=== PATIENT | female | born 1940 | race Caucasian/White ===

== ENCOUNTER 2019-12-02 06:24 | Outpatient (CLI) | payer MEDICARE ==
[2019-12-02 10:46] LABS: #Eosinphils 0.1 thou/uL (0.0-0.7); #Lymphocytes 1.2 thou/uL (1.20-3.40); #Monocytes 0.4 thou/uL (0.11-0.59); #Neutrophils 3.3 thou/uL (1.40-6.50); %Basophils 0.3 % (0.0-1.0); %Eosinophils 1.4 % (0.0-10.0); %Neutrophils 66.3 % (42.0-75.0); Mean Corpuscular HGB CONC 32.9 g/dL (32.0-36.0); Mean Corpuscular Hemoglobin 32.9 pg (27.0-31.0); Mean Platelet Volume 8.9 fL (7.4-10.4); Platelet Count 219 thou/uL (130-400); RBC Distribution Width 12.2 % (11.5-14.5); Red Blood Cell (RBC) Count 3.95 mill/uL (4.20-5.40); White Blood Cell (WBC) Count 4.9 thou/uL (4.8-10.8)
[2019-12-02 10:52] LABS: INR-International Normal Ratio 0.9; Prothrombin Time 12.5 SEC (12.0-14.7)
[2019-12-02 10:55] LABS: Bacteria/HPF 3+ HPF (None Seen); Bilirubin Negative (Negative); Blood, Urine Trace (Negative); Clarity Turbid (Clear); Glucose, Urine (Dipstick) Normal (Negative); Leukocyte 500 Leu/uL (Negative); Nitrite 2+ (Negative); Protein, Urine (Dipstick) 10 mg/dL (Neg-Trace); Squamous Epithelial 21-50 HPF (0-3); Urobilinogen Normal mg/dL (Less than 2); WBC/HPF Greater than 50 HPF (0-3)
[2019-12-02 10:58] LABS: Anion Gap 13 mmol/L (10-20); BUN (Urea Nitrogen) 17 mg/dL (9.8-20.1); Calc. Creatinine Clearance 0 mL/min (70-130); Calcium 9.8 mg/dL (7.8-10.44); Carbon Dioxide 26 mmol/L (23-31); Chloride 107 mmol/L (98-107); Estimated GFR-MDRD 53; Glucose 92 mg/dL (83-110); Sodium 142 mmol/L (136-145)
== END 2019-12-02 06:25 | disposition home or self-care (01) ==
LOC: LABBT 06:24
PROVIDERS: ATTEND Orthopaedic Surgery
DX: Z01.818 Encounter for other preprocedural examination (principal); M17.11 Unilateral primary osteoarthritis, right knee
CPT/HCPCS: 80048; 81001; 85025; 85610; 87081; 93005; 93010

== ENCOUNTER 2019-12-14 06:11 | Day surgery (SDC) | payer MEDICARE ==
[2019-12-02 09:14] VITALS: BMI 28.3
[2019-12-14] MEDS ORDERED: Tranexamic Acid 1,000 MG/10 ML VIAL ONE (07:37)
[2019-12-14] MEDS ORDERED: Sodium Chloride 0.9% 100 ML ONE (07:37)
[2019-12-14] MEDS ORDERED: Fentanyl 100 MCG/2 ML VIAL ONE ×3 (08:24→09:38)
[2019-12-14] MEDS ORDERED: Midazolam HCl 2 mg/2 ml Vial ONE (08:24)
[2019-12-14] MEDS ORDERED: Lidocaine 1% (PF) 30 ML VIAL ONE (08:24)
[2019-12-14] MEDS ORDERED: Ondansetron PF 4 MG/2 ML Vial IVP PRN ×2 (08:51→09:23)
[2019-12-14] MEDS ORDERED: HYDROcodone/Acetaminophen 10/325 mg Tablet PO PRN ×3 (08:51→09:23)
[2019-12-14] MEDS ORDERED: Zolpidem Tartrate 5 MG TAB PO PRN ×2 (08:51→09:23)
[2019-12-14] MEDS ORDERED: Promethazine HCl 25 MG/ML VIAL IM PRN ×3 (08:51→09:42)
[2019-12-14] MEDS ORDERED: Acetaminophen 325 MG TAB PO PRN (08:51)
[2019-12-14] MEDS ORDERED: Fentanyl 100 MCG/2 ML VIAL SLOW IVP PRN (08:51)
[2019-12-14] MEDS ORDERED: diphenhydrAMINE 25 MG CAP PO PRN (08:51)
[2019-12-14] MEDS ORDERED: Ondansetron PF 4 MG/2 ML Vial ONE ×2 (08:54→11:24)
[2019-12-14] MEDS ORDERED: Ropivacaine HCl/PF 250 ML in Premix Bag 1 BAG NERVE BLCK SCH (09:23)
[2019-12-14] MEDS ORDERED: traMADol HCl 50 MG TAB PO PRN (09:23)
[2019-12-14] MEDS ORDERED: PACU-Morphine 4MG/ML VIAL SLOW IVP PRN (09:42)
[2019-12-14] MEDS ORDERED: Promethazine HCl 25 MG/ML VIAL SLOW IVP PRN (09:42)
[2019-12-14 10:24] LABS: Bacteria/HPF 2+ HPF (None Seen); Bilirubin Negative (Negative); Blood, Urine Trace (Negative); Clarity Turbid (Clear); Glucose, Urine (Dipstick) Normal (Negative); Leukocyte 500 Leu/uL (Negative); Nitrite 2+ (Negative); Protein, Urine (Dipstick) 20 mg/dL (Neg-Trace); Squamous Epithelial 0-3 HPF (0-3); Urobilinogen Normal mg/dL (Less than 2); WBC/HPF Greater than 50 HPF (0-3)
--- NOTE | 2019-12-14 11:23 | RAD ---
EXAM: 2 views of the right knee HISTORY: Knee arthroplasty COMPARISON: None FINDINGS: No knee effusion is seen. The patient is status post knee arthroplasty without perihardware lucency or fracture. Air in the soft tissues is from recent surgery. IMPRESSION: Status post knee arthroplasty without evidence of complication.
[2019-12-14] MEDS ORDERED: Lidocaine 1% PF 5 ML VIAL ONE (11:24)
[2019-12-14] MEDS ORDERED: ePHEDrine/0.9% NaCl/PF SYRINGE 50 mg/10 ml ONE (11:24)
[2019-12-14] MEDS ORDERED: Dexamethasone 20 MG/5 ML VIAL ONE (11:24)
[2019-12-14] MEDS ORDERED: PROPOFOL 200 MG/20 ML VIAL ONE (11:24)
[2019-12-14] MEDS ORDERED: Ropivacaine 0.2% HCl/PF (40 MG/20 ML VIAL) ONE (11:39)
[2019-12-14] MEDS ORDERED: Ropivacaine 0.5% HCl/PF (150 MG/30 ML VIAL) ONE (11:39)
[2019-12-14] MEDS: Aspirin 81 mg Enteric Coated Tablet PO SCH ×2 (13:19→20:01)
[2019-12-14] MEDS: Sodium Chloride 0.9% 1,000 ML IV SCH ×3 (13:19→19:54)
[2019-12-14] MEDS: Losartan 25 MG TAB PO SCH (13:19)
--- NOTE | 2019-12-14 13:45 | OP ---
DATE OF PROCEDURE: 12/14/2019 PREOPERATIVE DIAGNOSIS: Degenerative joint disease of the right knee. POSTOPERATIVE DIAGNOSIS: Degenerative joint disease of the right knee. PROCEDURE PERFORMED: Right total knee arthroplasty using Chauvin Triathlon 4 femur, 3 tibia, 11 mm CS X3 polyethylene, and A29 patella. ANESTHESIA: General. ESTIMATED BLOOD LOSS: Minimal. SPECIMENS: None. DRAINS: None. COMPLICATIONS: None. PRIME MINISTER: Black Davis PA-C PROCEDURE IN DETAIL: After informed consent was obtained in the preoperative holding area, the patient was taken to the operative suite where general anesthesia was induced. Once adequate level of general anesthesia was obtained, the patient was positioned and a well-padded tourniquet was placed around the right proximal thigh. The right lower extremity was then prepped and draped in the usual sterile fashion. Prior to exsanguination, a time-out was called and all members of the surgical team agreed upon site, surgeon, and patient. The extremity was then exsanguinated and the tourniquet was raised. A midline longitudinal incision was then made directly over the patella extending 2 fingerbreadths above the superior pole of the patella and 2 fingerbreadths inferior to the inferior patellar pole of the patella. Deeper subcutaneous layers were dissected sharply and local bleeding was controlled with Bovie electrocautery. A quad tendon longitudinal split was then made sharply and a median parapatellar arthrotomy was carried out both sharp and with Bovie electrocautery, carried down to 1 fingerbreadth medial to the tibial tubercle. The knee was then placed into flexion and the patella was everted nicely, and a copious fat pad ectomy was performed allowing for greater exposure of the tibia. The computer-assisted distal femoral fiducial was then placed and pinned firmly, and the distal femoral cutting guide was pinned firmly into place. The oscillating saw was then used to remove the appropriate amount of bone. The 4-in-1 cutting block was then placed on the distal femur and the oscillating saw was used to remove the appropriate amount of bone off the anterior, posterior, and chamfer cuts. After completion of bone cuts, the anterior cruciate ligament was resected sharply and the posterior cruciate ligament retractor was placed and the tibia was subluxed for better exposure. Partial meniscectomies were carried out, and the tibial computer-assisted fiducial was pinned, and the cutting guide was placed. Oscillating saw was then used to remove the bone, with Hohmann retractors used to take care and protect the collateral ligaments. After the tibial resection was performed, a laminar curb builder was placed in between the freshened bone cuts. The knee placed at 90 degrees and further bilateral meniscectomies were carried out, and the curved osteotome and curettage were used to remove any excess bone spurs in the posterior compartment. The trial femoral component, tibial baseplate were placed with the appropriate polyethylene trial insert with an appropriate polyethylene spacer and patellar button. The knee was taken through full range of motion with flexion and extension from 0 to 90 degrees and patellar broach squarely in the trochlea without any squinting or subluxation noted. The knee was also stable to varus and valgus stressing at 0, 15, 45, and 90 degrees of flexion. The drawer was negative. All trial components were then removed and the keel punch was used to provide the appropriate defect in the tibia with a mallet. The freshened bone cuts were copiously irrigated with pulsatile lavage of about 1.5 L to remove all excess debris. The freshened bone cuts were then dried with suction and lap sponge. The knee was placed in flexion and retractors were placed to provide access to all bone cuts. Tobramycin-impregnated methyl methacrylate cement was then placed on the freshened bone cuts and implants which were malleted firmly into place. Curettage and [place] elevators were used to remove any excess bone cement. The knee was placed into full extension and the patellar button was placed under compression, and the cement was allowed to cure. Once completed, the components were again taken through full range of motion and copious irrigation of the knee was carried out with another liter of normal saline. All components were inspected fully with full range of motion and varus and valgus stressing. There was no laxity noted and full extension was observed clinically. Primary closure was accomplished with #2 interrupted Vicryl stitch of the arthrotomy defect. This was oversewn with a #2 running Quill barbed stitch. The gravitational platelet system was then injected into the arthrotomy prior to closure. The subcutaneous layer was then closed with a running 0 barbed Monocryl stitch and skin closure accomplished with a running subcuticular 3-0 Monocryl barbed Quill stitch and augmented with cement on the skin. Tourniquet was lowered. Good spontaneous return of distal pulses was noted clinically and a sterile dressing was applied to the incision. The procedure was terminated without any complications. The patient was awakened in the operative suite and the patient was taken to the recovery room in stable condition. Job ID: [id number]
[2019-12-14] MEDS ORDERED: Ketorolac Tromethamine 30 MG/ML VIAL IVP SCH (14:00)
[2019-12-14] MEDS: Ketorolac Tromethamine 30 MG/ML VIAL IVP SCH ×3 (14:43→23:49)
[2019-12-14] MEDS: Acetaminophen 325 MG TAB PO SCH ×3 (14:43→23:49)
--- NOTE | 2019-12-14 15:08 | CON ---
DATE OF CONSULTATION: PRIMARY CARE PHYSICIAN: Dr. Vik Blum. PRIMARY TEAM: Orthopedics, Dr. Caicedo. REASON FOR CONSULTATION: Medical management. HISTORY OF PRESENT ILLNESS: This is an 79-year-old white female with a known history of degenerative joint disease, here for right total knee arthroplasty, done earlier today. She is doing well postoperatively, has gotten up with physical therapy already and ambulated in the hallway. She denies any pain currently. No other complaints except for little nausea that she had postoperatively in the recovery room, still a little nauseated now. No vomiting. REVIEW OF SYSTEMS: CONSTITUTIONAL: No fevers. No chills. EYES: No double vision or blurred vision. ENT: No congestion, drainage, or sore throat. CARDIOVASCULAR: No chest pain. No palpitation or racing heart. PULMONARY: No coughing, wheezing, or shortness of breath. GASTROINTESTINAL: No abdominal pain. She had the nausea as per the HPI. No vomiting. No diarrhea or constipation. GENITOURINARY: No dysuria or hematuria. MUSCULOSKELETAL: No current muscle aches or joint pain. She had right knee pain that is now status post replacement. SKIN: No rashes or other lesions she has noted. NEUROLOGIC: No numbness, tingling, or focal weakness. PAST MEDICAL HISTORY: 1. Hypertension. 2. Hyperlipidemia. 3. Gastroesophageal reflux disease. 4. The patient's chart also lists chronic kidney disease, stage 3 and osteopenia, though the patient is not aware of these medical issues. PAST SURGICAL HISTORY: 1. Cholecystectomy. 2. Hysterectomy. 3. Melanoma removal times twice in the left arm. 4. Bilateral cataract removal. SOCIAL HISTORY: The patient denies tobacco, alcohol, or illicit drug use. She is a and lives with her daughter who is present in the room and is her medical power of melter caster. FAMILY HISTORY: Mother with diabetes and multiple other family members with diabetes as well. ALLERGIES: CODEINE CAUSES NAUSEA AND VOMITING. CURRENT MEDICATIONS: 1. Nexium 40 mg daily. 2. Losartan 50 mg daily. 3. Rosuvastatin 10 mg at night. PHYSICAL EXAMINATION: VITAL SIGNS: Blood pressure 153/76, pulse 75, respirations 16, O2 saturation 92% on room air, temperature 97.5. GENERAL: This is a well-developed, well-nourished, white female, in no acute distress. HEENT: Pupils are equal, round, and reactive to light. Oropharynx is clear without lesions, erythema, or exudate. NECK: Supple. No lymphadenopathy. No thyroid nodules or enlargement. No JVD. HEART: Regular rate and rhythm. No murmurs, rubs, or gallops. LUNGS: Clear to auscultation bilaterally. No wheezes, crackles, or rhonchi. ABDOMEN: Soft, nontender to palpation. Normoactive bowel sounds. No hepatosplenomegaly or other masses. EXTREMITIES: No clubbing, cyanosis, or edema. She has had a postoperative dressing on her right knee and has SCDs and KADY hose bilaterally. SKIN: No rashes or other lesions noted. NEUROLOGIC: The patient has intact strength and sensation in all extremities. No facial droop. LABORATORY DATA: Urinalysis does show greater than 50 white blood cells and 2+ bacteria in spite of no symptoms, she also has elevated leukocyte esterase, this is similar to a urinalysis which was done a week ago, and culture is currently pending. CBC within normal limits. Coagulation profile normal. Basic metabolic panel normal. ASSESSMENT: 1. Osteoarthritis of knee, status post right knee replacement. 2. Hypertension, resume home blood pressure medications. 3. Hyperlipidemia, resume rosuvastatin. 4. Gastroesophageal reflux disease. Resume daily Nexium. The patient has reportedly been on it twice a day in the past from Dr. Zamora, but was eventually weaned down to once a day. If she has symptoms, it can be increased back up to twice a day. 5. Chronic kidney disease by chart history. Her creatinine is currently normal. We will keep an eye on her urine output. No evidence of renal failure at this time. 6. Deep venous thrombosis prophylaxis, on SCDs and TEDs already. 7. Code status: I did discuss with the patient. She is a full code. Her medical power of melter caster is her daughter, Rosalinda Berg. Job ID: [id number]
[2019-12-14] MEDS: CEFAZOLIN 2 GM in Premix Bag 1 BAG IVPB SCH ×2 (17:01→23:49)
[2019-12-14] MEDS: traMADol HCl 50 MG TAB PO PRN (19:52)
[2019-12-14] MEDS: Rosuvastatin 10 MG TAB PO SCH (20:01)
[2019-12-15] MEDS: Sodium Chloride 0.9% 1,000 ML IV SCH ×2 (05:12→14:41)
[2019-12-15] MEDS: Acetaminophen 325 MG TAB PO SCH ×3 (05:13→16:35)
[2019-12-15] MEDS: Ketorolac Tromethamine 30 MG/ML VIAL IVP SCH ×3 (05:13→16:35)
[2019-12-15 05:46] LABS: Hemoglobin 10.1 g/dL (12.0-16.0); Mean Corpuscular HGB CONC 33.4 g/dL (32.0-36.0); Mean Corpuscular Hemoglobin 33.4 pg (27.0-31.0); Mean Platelet Volume 8.6 fL (7.4-10.4); Platelet Count 188 thou/uL (130-400); RBC Distribution Width 11.8 % (11.5-14.5); Red Blood Cell (RBC) Count 3.01 mill/uL (4.20-5.40)
--- NOTE | 2019-12-15 08:30 | PRG ---
DATE OF SERVICE: 12/15/2019 SUBJECTIVE: Noris is an 79-year-old female postop day 1 from right total knee arthroplasty. She had a little bit of pain breakthrough last night, but it has been better controlled this morning and she does complain of a little bit of nausea. Otherwise, she did get some rest last night. OBJECTIVE: VITAL SIGNS: Temperature 98.1, pulse 81, respiratory rate 16, blood pressure 124/72. GENERAL: She is alert and oriented to person, place, time, and situation, responsive and appropriate with examiner. Nonfocal. EXTREMITIES: Her incision is clean. Re-dressed. No significant swelling or ecchymosis is identified. She has good dorsiflexion, inversion, eversion. Neurovascularly intact in the right lower extremity. No shortening or malrotation. No strikethrough is noted. LABORATORY DATA: Hemoglobin and hematocrit 10.1 and 30.2. IMPRESSION: An 79-year-old female postop day 1 right total knee arthroplasty, doing well. PLAN: Continue current care. Expect discharge to home tomorrow. Job ID: [id number]
[2019-12-15] MEDS: Senokot S 8.6-50 MG TAB PO SCH ×2 (08:44→20:09)
[2019-12-15] MEDS: Ferrous Gluconate 324 MG TAB PO SCH ×2 (08:44→16:34)
[2019-12-15] MEDS: Losartan 25 MG TAB PO SCH (08:44)
[2019-12-15] MEDS: Multivitamin W/ Minerals 1 TAB PO SCH (08:44)
[2019-12-15] MEDS: Aspirin 81 mg Enteric Coated Tablet PO SCH ×2 (08:44→20:09)
[2019-12-15] MEDS: traMADol HCl 50 MG TAB PO PRN ×2 (08:50→18:34)
[2019-12-15] MEDS: Fentanyl 100 MCG/2 ML VIAL SLOW IVP PRN ×2 (09:41→19:29)
[2019-12-15] MEDS ORDERED: Sodium Chloride 0.9% 500 ML IV SCH (14:15)
[2019-12-15] MEDS: Nitrofurantoin Monohyd/M-Cryst 100 MG CAP PO SCH (20:09)
[2019-12-15] MEDS: Rosuvastatin 10 MG TAB PO SCH (20:09)
[2019-12-16] MEDS: Sodium Chloride 0.9% 1,000 ML IV SCH ×2 (00:12→12:08)
[2019-12-16] MEDS: Acetaminophen 325 MG TAB PO SCH ×3 (00:13→12:09)
[2019-12-16] MEDS: Ketorolac Tromethamine 30 MG/ML VIAL IVP SCH ×2 (00:14→06:03)
[2019-12-16] MEDS: traMADol HCl 50 MG TAB PO PRN ×2 (00:23→08:31)
[2019-12-16 05:19] LABS: Hemoglobin 9.5 g/dL (12.0-16.0); Mean Corpuscular HGB CONC 33.1 g/dL (32.0-36.0); Mean Corpuscular Hemoglobin 33.2 pg (27.0-31.0); Mean Platelet Volume 8.7 fL (7.4-10.4); Platelet Count 164 thou/uL (130-400); RBC Distribution Width 11.8 % (11.5-14.5); Red Blood Cell (RBC) Count 2.85 mill/uL (4.20-5.40); White Blood Cell (WBC) Count 6.5 thou/uL (4.8-10.8)
[2019-12-16] MEDS: Aspirin 81 mg Enteric Coated Tablet PO SCH (08:28)
[2019-12-16] MEDS: Losartan 25 MG TAB PO SCH (08:29)
[2019-12-16] MEDS: Multivitamin W/ Minerals 1 TAB PO SCH (08:29)
[2019-12-16] MEDS: Nitrofurantoin Monohyd/M-Cryst 100 MG CAP PO SCH (08:30)
[2019-12-16] MEDS: Senokot S 8.6-50 MG TAB PO SCH (08:30)
[2019-12-16] MEDS: Ferrous Gluconate 324 MG TAB PO SCH (08:43)
[2019-12-16 12:51] VITALS: BP 162/76; TEMP 98
--- NOTE | 2019-12-17 14:21 | DIS ---
DATE OF ADMISSION: 12/14/2019 DATE OF DISCHARGE: 12/16/2019 This is Black Davis PA-C dictating a report for Tawanda Caicedo MD. PREOPERATIVE DIAGNOSIS: Right knee osteoarthritis/degenerative joint disease. POSTOPERATIVE DIAGNOSIS: Right knee osteoarthritis/degenerative joint disease. PROCEDURE PERFORMED: The patient underwent a right total knee replacement. HOSPITAL STAY: Unremarkable. She was admitted to [address], where she worked with staff, Physical therapy, Occupational therapy, and progressed quite well. By postop day 2, she was ready to discharge home. DISCHARGE CONDITION: Good/stable. DISPOSITION: Home with family. FOLLOWUP: Followup would be in 2 to 4 weeks or sooner if there are problems or concerns. MEDICATIONS: Given with usage instructions. Job ID: [id number]
== END 2019-12-16 14:00 | disposition home or self-care (01) ==
LOC: SDC 06:11 → SJJU 08:51 → SDC 12-16 14:00
PROVIDERS: ATTEND Orthopaedic Surgery
PROC: 0SRC0J9 Replacement of Right Knee Joint with Synthetic Substitute, Cemented, Open Approach (ICD-10-PCS; principal; 2019-12-14)
PROC: 8E0YXBZ Computer Assisted Procedure of Lower Extremity (ICD-10-PCS; 2019-12-14)
DX: M17.11 Unilateral primary osteoarthritis, right knee (principal); E78.5 Hyperlipidemia, unspecified; K21.9 Gastro-esophageal reflux disease without esophagitis; M85.80 Other specified disorders of bone density and structure, unspecified site; I12.9 Hypertensive chronic kidney disease with stage 1 through stage 4 chronic kidney disease, or unspecified chronic kidney disease; N18.3 Chronic kidney disease, stage 3 (moderate); Z79.899 Other long term (current) drug therapy; Z88.5 Allergy status to narcotic agent
CPT/HCPCS: 20985; 27447; 73560; 81001; 85027; 87077; 87086; 87186; 97110 ×2; 97116 ×3; 97139 ×3; 97150; 97530 ×2; C1713; C1776; 36415; J0690; J1100; J1885; J2001; J2250; J2405; J2704; J2795; J3010; J3370; J3490

== ENCOUNTER 2021-10-23 09:58 | Inpatient (IN) | payer MEDICARE ==
[2021-10-23 10:38] LABS: #Lymphocytes 1.4 thou/uL (1.20-3.40); #Monocytes 1.1 thou/uL (0.11-0.59); #Neutrophils 10.7 thou/uL (1.40-6.50); %Basophils 0.1 % (0.0-1.0); %Eosinophils 0.3 % (0.0-10.0); %Lymphocytes 10.3 % (21.0-51.0); %Monocytes 8.5 % (0.0-10.0); %Neutrophils 80.8 % (42.0-75.0); Hemoglobin 12.8 g/dL (12.0-16.0); Mean Corpuscular HGB CONC 32.1 g/dL (32.0-36.0); Mean Corpuscular Hemoglobin 31.9 pg (27.0-31.0); Mean Corpuscular Volume 99.6 fL (78.0-98.0); Mean Platelet Volume 7.9 fL (7.4-10.4); Platelet Count 248 thou/uL (130-400); RBC Distribution Width 13.1 % (11.5-14.5); Red Blood Cell (RBC) Count 4.01 mill/uL (4.20-5.40); White Blood Cell (WBC) Count 13.3 thou/uL (4.8-10.8)
[2021-10-23 10:58] LABS: ALT (SGPT) 7 U/L (8-55); AST (SGOT) 12 U/L (5-34); Albumin 3.8 g/dL (3.4-4.8); Alkaline Phosphatase 69 U/L (40-110); Anion Gap 17 mmol/L (10-20); BUN (Urea Nitrogen) 18 mg/dL (9.8-20.1); Bilirubin, Total 1.4 mg/dL (0.2-1.2); Calc. Creatinine Clearance 0 mL/min (70-130); Calcium 9.8 mg/dL (7.8-10.44); Carbon Dioxide 19 mmol/L (23-31); Chloride 100 mmol/L (98-107); Globulin 3.6 g/dL (2.4-3.5); Glucose 149 mg/dL (83-110); Potassium 3.8 mmol/L (3.5-5.1); Protein, Total 7.4 g/dL (5.8-8.1); Sodium 132 mmol/L (136-145)
[2021-10-23] MEDS ORDERED: Aspirin 325 MG TAB ONE (12:58)
[2021-10-23] MEDS ORDERED: Acetaminophen 325 MG TAB PO PRN (13:31)
[2021-10-23 13:43] LABS: Troponin I Less than 0.010 ng/mL (< 0.028)
[2021-10-23 14:29] LABS: Lactic Acid 0.9 mmol/L (0.5-2.2)
[2021-10-23 14:41] LABS: Magnesium 1.5 mg/dL (1.6-2.6)
[2021-10-23 16:56] VITALS: BMI 23.1
[2021-10-23 17:38] LABS: Troponin I Less than 0.010 ng/mL (< 0.028)
[2021-10-23] MEDS ORDERED: Magnesium Sulfate 2 GM in Sodium Chloride 0.9% 100 ML IVPB SCH (19:00)
[2021-10-23] MEDS: Rosuvastatin 10 MG TAB PO SCH (20:03)
[2021-10-23] MEDS: Apixaban 5 MG TAB PO SCH (20:03)
[2021-10-23] MEDS: Flecainide 50 MG TAB PO SCH (20:03)
[2021-10-23] MEDS: Donepezil HCl 10 MG TAB PO SCH (20:03)
[2021-10-23 21:15] LABS: Bilirubin Negative (Negative); Blood, Urine 3+ (Negative); Clarity Turbid (Clear); Glucose, Urine (Dipstick) Normal (Negative); Ketone, Urine 10 mg/dL (Negative); Leukocyte 250 Leu/uL (Negative); Nitrite Negative (Negative); Protein, Urine (Dipstick) 20 mg/dL (Neg-Trace); Specific Gravity, Urine 1.024 (1.002-1.036); Urobilinogen Normal mg/dL (Less than 2); pH, Urine 5.5 (5.0-9.0)
[2021-10-23 21:30] LABS: Bacteria/HPF 4+ HPF (None Seen)
[2021-10-24 04:46] LABS: #Eosinphils 0.1 thou/uL (0.0-0.7); #Lymphocytes 1.3 thou/uL (1.20-3.40); #Monocytes 0.7 thou/uL (0.11-0.59); #Neutrophils 5.7 thou/uL (1.40-6.50); %Basophils 0.3 % (0.0-1.0); %Eosinophils 1.2 % (0.0-10.0); %Lymphocytes 16.4 % (21.0-51.0); %Monocytes 9.2 % (0.0-10.0); %Neutrophils 72.9 % (42.0-75.0); Hemoglobin 11.5 g/dL (12.0-16.0); Mean Corpuscular Hemoglobin 33.7 pg (27.0-31.0); Mean Platelet Volume 7.9 fL (7.4-10.4); Platelet Count 243 thou/uL (130-400); RBC Distribution Width 12.9 % (11.5-14.5); Red Blood Cell (RBC) Count 3.42 mill/uL (4.20-5.40); White Blood Cell (WBC) Count 7.8 thou/uL (4.8-10.8)
[2021-10-24 05:11] LABS: Anion Gap 15 mmol/L (10-20); BUN (Urea Nitrogen) 17 mg/dL (9.8-20.1); Calc. Creatinine Clearance 47 mL/min (70-130); Calcium 9.8 mg/dL (7.8-10.44); Carbon Dioxide 20 mmol/L (23-31); Chloride 104 mmol/L (98-107); Glucose 96 mg/dL (83-110); Magnesium 2.1 mg/dL (1.6-2.6); Potassium 3.9 mmol/L (3.5-5.1); Sodium 135 mmol/L (136-145)
[2021-10-24] MEDS: Aspirin 81 mg Enteric Coated Tablet PO SCH (08:07)
[2021-10-24] MEDS: Flecainide 50 MG TAB PO SCH ×2 (08:07→20:07)
[2021-10-24] MEDS: Apixaban 5 MG TAB PO SCH ×2 (08:08→20:07)
[2021-10-24 11:27] LABS: SARS-CoV-2 PCR by NAA Not Detected (NotDetected)
[2021-10-24] MEDS: cefTRIAXone\\ROCEPHIN 2 GM in Sodium Chloride 0.9% 100 ML IVPB SCH (15:21)
[2021-10-24] MEDS: Rosuvastatin 10 MG TAB PO SCH (20:07)
[2021-10-24] MEDS: Donepezil HCl 10 MG TAB PO SCH (20:07)
[2021-10-25 04:52] LABS: #Eosinphils 0.1 thou/uL (0.0-0.7); #Lymphocytes 1.7 thou/uL (1.20-3.40); #Monocytes 0.7 thou/uL (0.11-0.59); %Basophils 0.4 % (0.0-1.0); %Eosinophils 1.4 % (0.0-10.0); %Lymphocytes 19.4 % (21.0-51.0); %Monocytes 8.7 % (0.0-10.0); %Neutrophils 70.1 % (42.0-75.0); Hemoglobin 11.6 g/dL (12.0-16.0); Mean Corpuscular HGB CONC 33.5 g/dL (32.0-36.0); Mean Corpuscular Hemoglobin 33.2 pg (27.0-31.0); Mean Corpuscular Volume 98.9 fL (78.0-98.0); Mean Platelet Volume 8.1 fL (7.4-10.4); Platelet Count 262 thou/uL (130-400); RBC Distribution Width 12.8 % (11.5-14.5); White Blood Cell (WBC) Count 8.5 thou/uL (4.8-10.8)
[2021-10-25 05:06] LABS: Anion Gap 17 mmol/L (10-20); BUN (Urea Nitrogen) 16 mg/dL (9.8-20.1); Calc. Creatinine Clearance 44 mL/min (70-130); Calcium 9.8 mg/dL (7.8-10.44); Carbon Dioxide 19 mmol/L (23-31); Chloride 104 mmol/L (98-107); Glucose 89 mg/dL (83-110); Potassium 4.6 mmol/L (3.5-5.1); Sodium 135 mmol/L (136-145)
[2021-10-25 05:27] LABS: Free T4 (Free Thyroxine) 0.99 ng/dL (0.70-1.48); Thyroid Stimulating Hormone 0.4694 uIU/mL (0.35-4.94)
[2021-10-25] MEDS: Flecainide 50 MG TAB PO SCH (08:49)
[2021-10-25] MEDS: Apixaban 5 MG TAB PO SCH (08:49)
[2021-10-25] MEDS: Aspirin 81 mg Enteric Coated Tablet PO SCH (08:50)
[2021-10-25 11:43] VITALS: BP 148/71
[2021-10-25] MEDS: cefTRIAXone\\ROCEPHIN 2 GM in Sodium Chloride 0.9% 100 ML IVPB SCH (14:55)
[2021-10-25 16:30] VITALS: TEMP 98.7
== END 2021-10-25 18:20 | disposition home or self-care (01) | DRG 312 ==
LOC: ERS 09:58 → 2NO 12:54 → OBSVTOIN 10-25 12:58
PROVIDERS: ADMIT Internal Medicine; ATTEND Hospitalist
DX: R55 Syncope and collapse (principal); Z51.5 Encounter for palliative care; Z20.822 Contact with and (suspected) exposure to COVID-19; Z66 Do not resuscitate; I48.91 Unspecified atrial fibrillation; I10 Essential (primary) hypertension; K21.9 Gastro-esophageal reflux disease without esophagitis; D72.829 Elevated white blood cell count, unspecified; Z96.651 Presence of right artificial knee joint; Z90.49 Acquired absence of other specified parts of digestive tract; Z88.5 Allergy status to narcotic agent
CPT/HCPCS: 36415; 70553; 71045; 71046; 76536; 80048; 80053; 81001; 83605; 83735; 84439; 84443; 84481; 84484; 85025; 87086; 93005; 93010; 93306; 94640; 96374; 96375; G0378; J0696; J3475; J3490; J7620; U0003; U0005

== ENCOUNTER 2023-05-22 18:17 | Emergency (ER) | payer MEDICARE ==
[2023-05-22 18:44] LABS: #Eosinphils 0.1 thou/uL (0.0-0.7); #Monocytes 0.6 thou/uL (0.11-0.59); #Neutrophils 5.2 thou/uL (1.40-6.50); %Basophils 0.4 % (0.0-1.0); %Lymphocytes 15.3 % (21.0-51.0); %Monocytes 7.9 % (0.0-10.0); %Neutrophils 75.1 % (42.0-75.0); Hemoglobin 11.6 g/dL (12.0-16.0); Mean Corpuscular HGB CONC 32.7 g/dL (32.0-36.0); Mean Corpuscular Hemoglobin 30.1 pg (27.0-31.0); Mean Corpuscular Volume 92.2 fl (78.0-98.0); Mean Platelet Volume 10.6 fL (7.4-10.4); Platelet Count 271 10x3/uL (130-400); RBC Distribution Width 15.8 % (11.5-14.5); Red Blood Cell (RBC) Count 3.85 mill/uL (4.20-5.40); White Blood Cell (WBC) Count 6.9 10x3/uL (4.8-10.8)
[2023-05-22 19:14] LABS: ALT (SGPT) 61 U/L (8-55); AST (SGOT) 60 U/L (5-34); Albumin 4.4 g/dL (3.4-4.8); Alkaline Phosphatase 89 U/L (40-110); Anion Gap 16 mmol/L (10-20); BUN (Urea Nitrogen) 20 mg/dL (9.8-20.1); Bilirubin, Total 0.5 mg/dL (0.2-1.2); Calc. Creatinine Clearance 0 mL/min (70-130); Calcium 8.7 mg/dL (7.8-10.44); Carbon Dioxide 22 mmol/L (23-31); Chloride 107 mmol/L (98-107); Estimated GFR 41; Globulin 3.4 g/dL (2.4-3.5); Glucose 140 mg/dL (83-110); Potassium 3.8 mmol/L (3.5-5.1); Protein, Total 7.8 g/dL (5.8-8.1); Sodium 141 mmol/L (136-145)
== END 2023-05-22 19:30 | disposition home or self-care (01) ==
LOC: ERS 18:17
DX: S00.83XA Contusion of other part of head, initial encounter (principal); I10 Essential (primary) hypertension; Z79.899 Other long term (current) drug therapy; W19.XXXA Unspecified fall, initial encounter
CPT/HCPCS: 70450; 72125; 80053; 85025; 93005